=== PATIENT | female | born 1960 | race African-American/Black ===

== ENCOUNTER 2022-10-14 11:12 | Outpatient (CLI) | payer BC | END 2022-10-14 11:13 | disposition home or self-care (01) | LOC: CSHRAD 11:12 | PROVIDERS: ATTEND Neurological Surgery | DX: M51.36 Other intervertebral disc degeneration, lumbar region (principal); Z98.1 Arthrodesis status; M47.817 Spondylosis without myelopathy or radiculopathy, lumbosacral region | CPT/HCPCS: 72100 ==

== ENCOUNTER 2023-04-25 12:45 | Day surgery (SDC) | payer BC ==
[2023-04-25 12:54] VITALS: BMI 35.5
[2023-04-25] MEDS ORDERED: Lidocaine 1% PF 5 ML VIAL ONE (13:09)
[2023-04-25] MEDS ORDERED: Sodium Bicarbonate 2.5 MEQ/5 ML SDV ONE (13:09)
[2023-04-25 13:17] VITALS: BP 135/92; TEMP 98.8
[2023-04-25] MEDS ORDERED: FLU VACC QS2023-24(6MOS UP)/PF 60 MCG/0.5 ML SYRINGE IM ONE (13:45)
[2023-04-25] MEDS ORDERED: Iopamidol-M 200 41% 10 ML VIAL FS ONE (14:32)
== END 2023-04-25 15:00 | disposition home or self-care (01) ==
LOC: CSHRAD 12:45
PROVIDERS: ATTEND Neurological Surgery
PROC: B00B1ZZ Plain Radiography of Spinal Cord using Low Osmolar Contrast (ICD-10-PCS; principal; 2023-04-25)
DX: M51.36 Other intervertebral disc degeneration, lumbar region (principal); Z88.0 Allergy status to penicillin; Z88.8 Allergy status to other drugs, medicaments and biological substances
CPT/HCPCS: 62304; 72132; Q9966